=== PATIENT | male | born 1980 | race Caucasian/White ===

== ENCOUNTER 2025-02-02 09:20 | Day surgery (SDC) | payer BC, SELFPAY ==
--- NOTE | 2025-01-31 07:00 | EKG_ITS ---
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
[2025-01-31 11:35] VITALS: BMI 42.0
[2025-01-31 13:18] LABS: Basophils # (Auto) 0.1 Thou/mm3 (0.0-0.2); Basophils % (Auto) 1 % (0-2.5); Eosinophils # (Auto) 0.3 Thou/mm3 (0.0-0.5); Eosinophils % (Auto) 2 % (0-10); Hematocrit 38.5 % (41.0-53.0); Immature Granulocytes % (Auto) 0 % (0-0); Immature Granulocytes Auto 0.03 Thou/mm3 (0.00-0.00); Lymphocytes # (Auto) 3.8 Thou/mm3 (1.0-4.8); Lymphocytes % (Auto) 35 % (10-50); Mean Corpuscular HGB Conc 33.8 g/dl (31.0-37.0); Mean Corpuscular Hemoglobin 27.4 pg (25.0-35.0); Mean Corpuscular Volume 81 fL (80-100); Monocytes % (Auto) 10 % (0-12); Neutrophils # (Auto) 5.7 Thou/mm3 (1.8-7.7); Neutrophils % (Auto) 52 % (37-80); Nucleated Red Blood Cell % 0 /100 WBC (0); Platelet Count 279 Thou/mm3 (140-440); RDW Standard Deviation 42.9 fL (35.1-43.9); Red Blood Count 4.74 Miln/mm3 (4.50-5.90); White Blood Count 10.8 Thou/mm3 (3.8-10.6)
[2025-01-31 13:42] LABS: T4 (Thyroxine) 6.6 mcg/dL (4.5-10.9)
[2025-01-31 13:48] LABS: Alanine Aminotransferase 34 U/L (10-49); Albumin, Serum 4.3 gm/dL (3.5-5.0); Albumin/Globulin Ratio 1.6 (1.2-2.2); Alkaline Phosphatase 70 U/L (46-116); Anion Gap 7 (7-16); Aspartate Amino Transferase 24 U/L (0-34); BUN/Creatinine Ratio 19 Ratio (12-20); Bilirubin,Total 0.3 mg/dL (0.3-1.2); Blood Urea Nitrogen 21 mg/dL (9-23); Carbon Dioxide 25.9 mMol/L (20.0-31.0); Chloride 108 mMol/L (98-107); Creatinine (Component) 1.1 mg/dL (0.6-1.3); Estimated Creatinine Clearance 124.5 mL/min (>60); Globulin 2.7 gm/dL (2.3-3.5); Glucose 105 mg/dL (74-106); Osmolality,Calculated 284 (275-295); Potassium 4.5 mMol/L (3.4-5.1); Sodium 141 mMol/L (136-145); Thyroid Stimulating Hormone 1.63 uIU/mL (0.55-4.78); eGFR > 60 See Note
--- NOTE | 2025-01-31 14:20 | SUR.PREOP ---
Cardiac records reviewed with Dr Hunter.
--- NOTE | 2025-02-01 15:22 | SUR.PREOP ---
Pt notified to come in tomorrow at 0930.
[2025-02-02] VITALS (8 sets, daily range): BP systolic 128–156; BP diastolic 66–100; PULSE 77–98; RESP 11–19; TEMP 36.4–36.7; O2SAT 93–100; BMI 41.1
--- NOTE | 2025-02-02 12:38 | SUR.PHASEI ---
1238: pt received from OR via [facility]. received report from HERNANDEZ Magana and LETTY Ochoa. pt sleepy at this time. no s/s of resp. distress or discomfort. no s/s of pain or discomfort. dressing to anterior neck clean, dry and intact. no bleeding or discharge noted from anterior neck.
--- NOTE | 2025-02-02 12:41 | ESOP_ITS ---
Date of Procedure 02/02/25 Pre Op Diagnosis Enlarging left thyroid nodules Post Op Diagnosis Enlarging left thyroid nodules Procedure Left thyroid lobectomy Findings Multiple hard nodules of left thyroid lobe Procedure Description Patient brought to the operating room in supine position. After administration of general endotracheal anesthesia, patient's neck was extended and prepped and draped in standard surgical manner. An approximately 4 cm semicircular incision was made approximately 2 fingerbreadths above the sternal notch. Dissection was carried subcutaneous tissue and platysma was divided. Superior and inferior subplatysmal plane were developed. Median raphae was identified and divided. The strap muscle on the left side was retracted laterally and the areolar tissue between the strap muscle and the thyroid tissues were divided. The median thyroid vein was identified and ligated. The superior pole vessels were mobi lized and divided with 0 silk tie. The inferior vessels were then individually identified and ligated. The recurrent laryngeal nerve on the left side was identified and kept away from dissection proceeded all times. I was able to identify the inferior parathyroid gland and preserved it, I was unable to clearly identify the superior parathyroid gland. Once the vessels were ligated the thyroid was from the anterior surface of the trachea by dividing the ligament of Devlin. A clamp was placed just to the right of the midline on the thyroid tissue and the left lobe of thyroid was removed. The left lobe was marked with sutures to orient the pathologist. 0 silk suture was used and placed around the clamp and the clamp was released. The area was copiously thoroughly washed and irrigated, all the fluids were suctioned in the section fluids and clear. Hemostasis was adequate and satisfactory. Topical hemostatic agent snow Surgicel placed on the left side of the neck to further secure hemostasis. Median raphae was then closed with running 2-0 Vicryl. Platysma reapproximated with interrupted sutures using 3-0 Vicryl, and the incision was closed with 4-0 Monocryl subcuticular fashion. Instruments, needle and sponge counts were reported to be correct ?2. Patient tolerated procedure well. She was extubated, breathing spontaneously and without difficulty and was transf erred to postanesthesia care in stable condition. Anesthesia GETA and local Pathology / specimen Other (Left thyroid lobe) Estimated Blood Loss 25 Condition Stable Disposition PACU Surgeon Damaso Bolanos MD Surgical Staff Operation Date: 02/02/25 11:30 Case Staff Anesthesiologist: Micky Ramsey [employer] coxswain: Cherrie Banegas
[2025-02-02] MEDS: HYDROmorphone INJ 2 MG/ML VIAL 0.4 MG IV (13:04)
--- NOTE | 2025-02-02 13:08 | SUR.PHASEI ---
1308:pt able to drink water without any issues
--- NOTE | 2025-02-02 13:27 | SUR.PHASEII ---
pt able to eat jello without any issues
[2025-02-02] MEDS: HYDROcodone/APAP 5/325 TABLET 1 TAB PO (13:30)
--- NOTE | 2025-02-02 13:55 | SUR.PHASEII ---
1355:pt discharge to home via wheelchair. pt alert and oriented to name, place and time. no s/s of resp. distress or discomfort. denies any pain or discomfort. dressing to anterior neck clean, dry and intact. no bleeding or discharge noted. discharge instructions given to and pt, verbalizes understanding. all belongings brought given back to patient.
== END 2025-02-02 13:55 | disposition home or self-care (01) ==
PROVIDERS: Anesthesiology; PCP Specialist; Referring Provider Surgery; Visit Provider Surgery
PROC: (CPT 60220; principal; 2025-02-02 11:15)
DX: C73 Malignant neoplasm of thyroid gland (principal); I10 Essential (primary) hypertension; Z90.49 Acquired absence of other specified parts of digestive tract; Z90.89 Acquired absence of other organs; Z88.0 Allergy status to penicillin; Z79.899 Other long term (current) drug therapy
CPT/HCPCS: 60220; 36415; 80053; 84436; 84443; 85025; 93005; A4217; A4649; J0131; J0690; J1171; J2250; J2704; J2765; J3010; J3490; A9270

== ENCOUNTER 2025-02-27 06:15 | Day surgery (SDC) | payer BC, SELFPAY ==
[2025-02-23 10:30] VITALS: BMI 42.1
[2025-02-23 11:28] LABS: Basophils # (Auto) 0.1 Thou/mm3 (0.0-0.2); Basophils % (Auto) 1 % (0-2.5); Eosinophils # (Auto) 0.2 Thou/mm3 (0.0-0.5); Eosinophils % (Auto) 3 % (0-10); Hematocrit 37.3 % (41.0-53.0); Hemoglobin 12.6 g/dL (13.5-16.0); Immature Granulocytes % (Auto) 0 % (0-0); Immature Granulocytes Auto 0.04 Thou/mm3 (0.00-0.00); Lymphocytes # (Auto) 3.3 Thou/mm3 (1.0-4.8); Lymphocytes % (Auto) 35 % (10-50); Mean Corpuscular HGB Conc 33.8 g/dl (31.0-37.0); Mean Corpuscular Hemoglobin 27.2 pg (25.0-35.0); Mean Corpuscular Volume 80 fL (80-100); Monocytes # (Auto) 0.9 Thou/mm3 (0.0-0.8); Monocytes % (Auto) 10 % (0-12); Neutrophils # (Auto) 4.8 Thou/mm3 (1.8-7.7); Neutrophils % (Auto) 52 % (37-80); Nucleated Red Blood Cell % 0 /100 WBC (0); Platelet Count 264 Thou/mm3 (140-440); RDW Standard Deviation 42.5 fL (35.1-43.9); Red Blood Count 4.64 Miln/mm3 (4.50-5.90); White Blood Count 9.3 Thou/mm3 (3.8-10.6)
[2025-02-23 11:47] LABS: Alanine Aminotransferase 32 U/L (10-49); Albumin, Serum 4.5 gm/dL (3.5-5.0); Albumin/Globulin Ratio 1.7 (1.2-2.2); Alkaline Phosphatase 70 U/L (46-116); Anion Gap 9 (7-16); Aspartate Amino Transferase 24 U/L (0-34); BUN/Creatinine Ratio 15 Ratio (12-20); Bilirubin,Total 0.4 mg/dL (0.3-1.2); Blood Urea Nitrogen 17 mg/dL (9-23); Calcium 8.9 mg/dL (8.3-10.6); Calcium (Corrected) 8.9 mg/dL (8.5-10.1); Carbon Dioxide 25.9 mMol/L (20.0-31.0); Chloride 104 mMol/L (98-107); Creatinine (Component) 1.1 mg/dL (0.6-1.3); Estimated Creatinine Clearance 124.8 mL/min (>60); Globulin 2.7 gm/dL (2.3-3.5); Glucose 104 mg/dL (74-106); Osmolality,Calculated 279 (275-295); Potassium 4.2 mMol/L (3.4-5.1); Sodium 139 mMol/L (136-145); Thyroid Stimulating Hormone 2.59 uIU/mL (0.55-4.78); Total Protein 7.2 gm/dL (5.7-8.2); eGFR > 60 See Note
--- NOTE | 2025-02-23 15:14 | SUR.PREOP ---
Pt notified to come in at 544 for surgery.
--- NOTE | 2025-02-23 15:20 | SUR.PREOP ---
Pt notified to come in on Wednesday at 0545.
[2025-02-27] VITALS (9 sets, daily range): BP systolic 126–162; BP diastolic 81–98; PULSE 78–94; RESP 12–18; TEMP 36.5–36.8; O2SAT 95–99; BMI 43.6
[2025-02-27] MEDS: RINGERS LACTATED 1000 ML 1,000 ML 20 ML IV (07:23)
--- NOTE | 2025-02-27 09:29 | PD.SUROPNT ---
Date of Procedure 02/27/25 Pre Op Diagnosis Papillary thyroid cancer status post left thyroid lobectomy Post Op Diagnosis Papillary thyroid cancer status post left thyroid lobectomy Procedure Completion thyroidectomy Findings You was noted to have small nodules on the right lobe and scarring from previous operation Procedure Description Patient brought to the operating room in supine position. After administration of general endotracheal anesthesia, patient's neck was extended and prepped and draped in standard surgical manner. An approximately 4 cm semicircular incision was made approximately 2 fingerbreadths above the sternal notch over his previous scar. Dissection was carried subcutaneous tissue and platysma was divided. Superior and inferior subplatysmal plane were developed. He was noted to have scarring from previous operation. Median raphae was identified and divided. The strap muscle on the right side was retracted laterally and the areolar tissue between the strap muscle and the thyroid tissues were divided. The median thyroid vein was identified and ligated. The superior pole vessels were mobilized and divided with 0 silk tie. The inferior vessels were then individually identified and ligated. The recurrent laryngeal nerve on the left side was identified and kept away from dissection proceeded all times. I was able to identify the inferior parathyroid gland and preserved it, I was unable to clearly identify the superior parathyroid gland. Once the vessels were ligated the thyroid was from the anterior surface of the trachea by dividing the ligament of Devlin. The right lobe was marked with sutures to orient the pathologist. 0 silk suture was used and placed around the clamp and the clamp was released. The area was copiously thoroughly washed and irrigated, all the fluids were suctioned in the section fluids and clear. Hemostasis was adequate and satisfactory. Topical hemostatic agent snow Surgicel placed on the left side of the neck to further secure hemostasis. Median raphae was then closed with running 2-0 Vicryl. Platysma reapproximated with interrupted sutures using 3-0 Vicryl, and the incision was closed with 4-0 Monocryl subcuticular fashion. Instruments, needle and sponge counts were reported to be correct ?2. Patient tolerated procedure well. She was extubated, breathing spontaneously and without difficulty and was transferred to postanesthesia care in stable condition. Anesthesia GETA and local Pathology / specimen Other (Right thyroid lobe) Estimated Blood Loss 25 Condition Stable Disposition PACU Surgeon Damaso Bolanos MD Surgical Staff Operation Date: 02/27/25 07:30 Case Staff Anesthesiologist: Salvador Bond terminal clerk: Ashley Mclean
--- NOTE | 2025-02-27 09:59 | SUR.PHASEI ---
0932: Pt received in [facility] via [facility]. Report from Dr. Ayala. Pt obtunded. Oral airway in place. Resp even, unlabored. VS stable and within pre-procedure baseline. Dressing to anterior neck dry, clean, intact. 0940: Oral airway dc'd. Resp even, unlabored. 0955: Pt resting with no complaints voiced. Resp even, unlabored. VS stable. Dressing remains dry, clean, intact. No c/o pain.
--- NOTE | 2025-02-27 10:14 | SUR.PHASEII ---
1005: Pt has been resting with no complaints voiced. Unable to remain awake. Resp remains even, unlabored. Dressing dry, clean, intact.
--- NOTE | 2025-02-27 10:24 | SUR.PHASEII ---
1024: Pt more awake, alert. Resp even, unlabored. VS stable. Dressing dry, clean, intact. Denies pain. Sitting up tolerating po fluids with no difficulty swallowing and no n/v.
--- NOTE | 2025-02-27 11:32 | SUR.PHASEII ---
1145: Pt fully awake, oriented x3. has been at bedside. VS stable. Resp even, unlabored. Denies pain, nausea. Pt and stated understanding of discharge instructions. 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 Pt discharged from [facility] in stable condition.
== END 2025-02-27 10:45 | disposition home or self-care (01) ==
PROVIDERS: PCP Specialist; Referring Provider Surgery; Visit Provider Surgery
PROC: (CPT 60240; principal; 2025-02-27 07:30)
DX: C73 Malignant neoplasm of thyroid gland (principal)
CPT/HCPCS: 60240; 36415; 80053; 84443; 85025; A4217; A4649; J0690; J1100; J1885; J2250; J2405; J2704; J3010; J3490; J7120

== ENCOUNTER 2025-03-06 10:48 | Outpatient (RCR) | payer BC, SELFPAY ==
--- NOTE | 2025-03-06 13:22 | CTCCONSULT_ITS ---
[facility] [address] [place], [place] [address] Consultation Note Date: 03/06/2025 MR#: [id number] Name: JESSICA JUAREZ : 1980 Dx: C73 Malignant neoplasm of thyroid gland Attending physician. Dieter Guerrero MD History of Present Illness: 44-year-old gentleman with underwent initial left thyroidectomy February 02, 2025 revealing 1 cm papillary carcinoma follicular variant left lobe and isthmus less than 3 mitosis per 2 mm, smaller tumor 0.2 cm. extending to the posterior margin. 2 lymph nodes removed ne gative for tumor. There was no perineural invasion identified. Patient then underwent right lobe thyroid lobectomy 02/27/2025 negative for malignancy 3 benign lymph nodes. Surgeries were performed by Dr. Bolanos. On 02/03/2025 patient had unremarkable CBC and CMP including corrected calcium 8.9. Past Medical History: Asthma tonsillitis chickenpox allergies Meds. 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 Patient with stage I T1a N0 left papillary thyroid carcinoma. Right thyroid removal revealed no malignancy. 2. Patient has overall favorable histology limited to 1 (left) lobe of the thyroid. T1apN0 3 I do not believe he needs ablation using radioiodine. 4. Will check ultrasound labs including calcium and thyroid function test and thyroglobulin before next visit. 5. Thank you very much allowing me to evaluate this patient. Cc; Damaso Guerrero MD Electronically signed by: VENESSA YODER 03/06/2025 1:20 PM
== END 2025-04-02 23:59 | disposition home or self-care (01) ==
LOC: SCTC 10:48
PROVIDERS: PCP Specialist; Referring Provider Specialist; Visit Provider Radiology Therapeutic Radiology
DX: C73 Malignant neoplasm of thyroid gland (principal); E89.0 Postprocedural hypothyroidism
CPT/HCPCS: 99213; G0463

== ENCOUNTER → 2025-03-27 | Outpatient (CLI) | payer BC, SELFPAY ==
--- NOTE | 2025-03-27 14:00 | XR_ITS ---
Examination: Thyroid sonography complete TECHNIQUE: Grayscale sonographic images thyroid bed Date and time: March 27, 2025 1355 hours INDICATIONS: Diagnosis thyroid cancer post thyroidectomies, patient states swelling and lump in the neck one week FINDINGS: No thyroid tissue Mild edema in the mid neck No soft tissue mass IMPRESSION: Mild edema in the mid neck, no soft tissue mass
== END | disposition home or self-care (01) ==
LOC: CDIM 13:34
PROVIDERS: PCP Specialist; Referring Provider Radiology Therapeutic Radiology; Visit Provider Radiology Therapeutic Radiology
DX: C73 Malignant neoplasm of thyroid gland (principal)
CPT/HCPCS: 76536

== ENCOUNTER 2025-05-08 09:52 | Outpatient (RCR) | payer BC, SELFPAY ==
--- NOTE | 2025-05-08 10:45 | CTCFLWUP_ITS ---
[facility] [address] [place], [place] [address] FOLLOW-UP NOTE Date: 05/08/2025 MR#: [id number] Name: JESSICA JUAREZ : 1980 Dx: C73 Malignant neoplasm of thyroid gland Identification. Patient with stage I T1a N0 left papillary thyroid carcinoma. Initial left thyroidectomy February 02, 2025, 1 cm papillary carcinoma follicular variant left lobe and isthmus less than 3 mitosis per 2 mm smaller tumor 0.2 cm extended to posterior margins. 2 lymph nodes removed negative for tumor. Patient then underwent right lobe thyroid lobectomy 02/27/2025 negative for malignancy 3 benign lymph nodes removed. Surgery was performed by Dr. Damaso Bolanos MD. Stage I pT1aN0. Had ultrasound 03/27/2025 mild edema mid neck no soft tissue mass. Currently on Synthroid supplements provided by Dr. Guerrero Patient did not get labs drawn, which I have requested at this time. CBC CMP TSH thyroxine free thyroglobulin thyroglobulin antibody. Told patient that if these labs are unremarkable that he could be followed by primary care provider who will replace her thyroid hormones keeping him euthyroid. I will call him with the results and if they are favorable I will see him in 6 months time. Cc: Dieter Guerrero MD.. Electronically signed by: Abelino Maria M.D. 05/08/2025 10:43 AM
== END 2025-06-03 23:59 | disposition home or self-care (01) ==
LOC: SCTC 09:52
PROVIDERS: PCP Specialist; Referring Provider Radiology Therapeutic Radiology; Visit Provider Radiology Therapeutic Radiology
DX: C73 Malignant neoplasm of thyroid gland (principal); E89.0 Postprocedural hypothyroidism; Z79.890 Hormone replacement therapy
CPT/HCPCS: 99213; G0463

== ENCOUNTER → 2025-05-08 | Outpatient (CLI) | payer BC, SELFPAY ==
[2025-05-08 11:49] LABS: Basophils # (Auto) 0.1 Thou/mm3 (0.0-0.2); Basophils % (Auto) 1 % (0-2.5); Eosinophils # (Auto) 0.3 Thou/mm3 (0.0-0.5); Eosinophils % (Auto) 3 % (0-10); Hematocrit 39.9 % (41.0-53.0); Hemoglobin 13.2 g/dL (13.5-16.0); Immature Granulocytes Auto 0.06 Thou/mm3 (0.00-0.00); Lymphocytes # (Auto) 3.7 Thou/mm3 (1.0-4.8); Lymphocytes % (Auto) 35 % (10-50); Mean Corpuscular HGB Conc 33.1 g/dl (31.0-37.0); Mean Corpuscular Hemoglobin 27.7 pg (25.0-35.0); Mean Corpuscular Volume 84 fL (80-100); Monocytes # (Auto) 0.9 Thou/mm3 (0.0-0.8); Monocytes % (Auto) 9 % (0-12); Neutrophils # (Auto) 5.6 Thou/mm3 (1.8-7.7); Neutrophils % (Auto) 52 % (37-80); Nucleated Red Blood Cell # 0.00 Thou/mm3 (0.00-0.00); Nucleated Red Blood Cell % 0 /100 WBC (0); Platelet Count 304 Thou/mm3 (140-440); RDW Standard Deviation 48.8 fL (35.1-43.9); Red Blood Count 4.77 Miln/mm3 (4.50-5.90); White Blood Count 10.7 Thou/mm3 (3.8-10.6)
[2025-05-08 12:02] LABS: Alanine Aminotransferase 37 U/L (10-49); Albumin, Serum 4.7 gm/dL (3.5-5.0); Albumin/Globulin Ratio 1.8 (1.2-2.2); Alkaline Phosphatase 69 U/L (46-116); Anion Gap 7 (7-16); Aspartate Amino Transferase 30 U/L (0-34); BUN/Creatinine Ratio 10 Ratio (12-20); Bilirubin,Total 0.4 mg/dL (0.3-1.2); Blood Urea Nitrogen 12 mg/dL (9-23); Calcium 9.4 mg/dL (8.3-10.6); Calcium (Corrected) 9.4 mg/dL (8.5-10.1); Carbon Dioxide 26.7 mMol/L (20.0-31.0); Chloride 104 mMol/L (98-107); Creatinine (Component) 1.2 mg/dL (0.6-1.3); Free T4 (Free Thyroxine) 0.79 ng/dL (0.89-1.76); Globulin 2.6 gm/dL (2.3-3.5); Glucose 94 mg/dL (74-106); Osmolality,Calculated 275 (275-295); Potassium 4.6 mMol/L (3.4-5.1); Sodium 138 mMol/L (136-145); Thyroid Stimulating Hormone 54.30 uIU/mL (0.55-4.78); Total Protein 7.3 gm/dL (5.7-8.2); eGFR > 60 See Note
[2025-05-11 13:51] LABS: Thyroglobulin Antibodies <1 IU/mL (< OR = 1)
[2025-05-14 14:36] LABS: Thyroglobulin 1.9 ng/mL
== END | disposition home or self-care (01) ==
LOC: SCTO 10:46 → SCTH 10:52
PROVIDERS: PCP Specialist; Referring Provider Radiology Therapeutic Radiology; Visit Provider Radiology Therapeutic Radiology
DX: C73 Malignant neoplasm of thyroid gland (principal)
CPT/HCPCS: 36415; 80053; 84432; 84439; 84443; 85025; 86800

== ENCOUNTER → 2025-06-06 | Outpatient (CLI) | payer BC, SELFPAY ==
[2025-06-06 10:49] LABS: Free T4 (Free Thyroxine) 0.95 ng/dL (0.89-1.76); Thyroid Stimulating Hormone 37.35 uIU/mL (0.55-4.78)
== END | disposition home or self-care (01) ==
PROVIDERS: PCP Specialist; Referring Provider Nurse Practitioner Family; Visit Provider Nurse Practitioner Family
DX: C73 Malignant neoplasm of thyroid gland (principal)
CPT/HCPCS: 36415; 84439; 84443

== ENCOUNTER → 2025-07-24 | Outpatient (CLI) | payer BC, SELFPAY ==
[2025-07-24 10:33] LABS: Basophils # (Auto) 0.1 Thou/mm3 (0.0-0.2); Basophils % (Auto) 1 % (0-2.5); Eosinophils # (Auto) 0.4 Thou/mm3 (0.0-0.5); Eosinophils % (Auto) 4 % (0-10); Hematocrit 39.5 % (41.0-53.0); Hemoglobin 12.9 g/dL (13.5-16.0); Immature Granulocytes Auto 0.07 Thou/mm3 (0.00-0.00); Lymphocytes # (Auto) 3.6 Thou/mm3 (1.0-4.8); Lymphocytes % (Auto) 36 % (10-50); Mean Corpuscular HGB Conc 32.7 g/dl (31.0-37.0); Mean Corpuscular Hemoglobin 27.9 pg (25.0-35.0); Mean Corpuscular Volume 86 fL (80-100); Monocytes # (Auto) 0.8 Thou/mm3 (0.0-0.8); Monocytes % (Auto) 8 % (0-12); Neutrophils # (Auto) 5.2 Thou/mm3 (1.8-7.7); Neutrophils % (Auto) 52 % (37-80); Nucleated Red Blood Cell # 0.00 Thou/mm3 (0.00-0.00); Nucleated Red Blood Cell % 0 /100 WBC (0); Platelet Count 311 Thou/mm3 (140-440); RDW Standard Deviation 45.1 fL (35.1-43.9); Red Blood Count 4.62 Miln/mm3 (4.50-5.90); White Blood Count 10.1 Thou/mm3 (3.8-10.6)
[2025-07-24 10:53] LABS: Alanine Aminotransferase 43 U/L (10-49); Albumin, Serum 5.0 gm/dL (3.5-5.0); Albumin/Globulin Ratio 2.2 (1.2-2.2); Alkaline Phosphatase 68 U/L (46-116); Anion Gap 9 (7-16); Aspartate Amino Transferase 32 U/L (0-34); BUN/Creatinine Ratio 8 Ratio (12-20); Bilirubin,Total 0.2 mg/dL (0.3-1.2); Blood Urea Nitrogen 9 mg/dL (9-23); Calcium 9.5 mg/dL (8.3-10.6); Calcium (Corrected) 9.5 mg/dL (8.5-10.1); Carbon Dioxide 27.3 mMol/L (20.0-31.0); Chloride 105 mMol/L (98-107); Creatinine (Component) 1.2 mg/dL (0.6-1.3); Free T4 (Free Thyroxine) 1.07 ng/dL (0.89-1.76); Globulin 2.3 gm/dL (2.3-3.5); Glucose 102 mg/dL (74-106); Osmolality,Calculated 279 (275-295); Potassium 4.7 mMol/L (3.4-5.1); Sodium 141 mMol/L (136-145); Thyroid Stimulating Hormone 39.43 uIU/mL (0.55-4.78); Total Protein 7.3 gm/dL (5.7-8.2); eGFR > 60 See Note
[2025-07-27 17:47] LABS: Thyroglobulin Antibodies <1 IU/mL (< OR = 1)
[2025-07-30 06:39] LABS: Thyroglobulin 0.8 ng/mL
== END | disposition home or self-care (01) ==
LOC: SCTO 09:55
PROVIDERS: PCP Specialist; Referring Provider Radiology Therapeutic Radiology; Visit Provider Radiology Therapeutic Radiology
DX: C73 Malignant neoplasm of thyroid gland (principal)
CPT/HCPCS: 36415; 80053; 84432; 84439; 84443; 85025; 86800

== ENCOUNTER 2025-07-25 14:52 | Outpatient (RCR) | payer BC, SELFPAY ==
--- NOTE | 2025-07-25 16:02 | CTCFLWUP_ITS ---
[facility] [address] [place], [place] [address] FOLLOW-UP NOTE Date: 07/25/2025 MR#: [id number] Name: JESSICA JUAREZ : 1980 Dx: C73 Malignant neoplasm of thyroid gland Identification. Patient with stage I T1a N0 left papillary thyroid carcinoma initial thyroidectomy February 02, 2005 1 cm papillary carcinoma follicular variant left lobe and isthmus less than 3 mitosis were 2 mm smaller tumor 0.2 cm extended to posterior margins. 2 lymph nodes were negative for tumor. Patient then underwent right lobe thyroid lobectomy 02/27/2025 negative for malignancy 3 benign lymph nodes removed surgery was performed by Dr. Damaso Bolanos MD. Stage I pT1a N0. Involving left lobe only. Had ultrasound 03/27/2025 mild edema mid neck no soft tissue mass. Currently on Synthroid supplements available by Dr. Guerrero. 07/24/2025 TSH 39.43 free T4 1.07 thyroglobulin pending. Thyroglobulin 05/08/2025 1.9 less than 1 thyroglobulin antibody. Patient said he is feeling fine. Assessment #1 stage I T1a N0 left papillary thyroid carcinoma status post total thyroidectomy. #2. Patient's TSH elevated with free T4 low normal. Asked patient to start taking the higher dose of 175 mcg of Synthroid. #3. We will check labs in 2 months and see the patient again in 3 months. Ccc: Dieter Bolanos MD Electronically signed by: Abelino Maria M.D. 07/25/2025 4:00 PM
== END 2025-08-03 23:59 | disposition home or self-care (01) ==
LOC: SCTC 14:52
PROVIDERS: PCP Specialist; Referring Provider Specialist; Visit Provider Radiology Therapeutic Radiology
DX: C73 Malignant neoplasm of thyroid gland (principal); E89.0 Postprocedural hypothyroidism; Z79.890 Hormone replacement therapy
CPT/HCPCS: 99213; G0463